=== PATIENT | male | born 1980 | race Caucasian/White ===

== ENCOUNTER 2020-06-20 10:48 | Emergency (ER) | payer OTHER ==
[~2020-06-20 10:48] MED LIST: CYCLOBENZAPRINE10 MG PO; IBUPROFEN800 MG PO
== END 2020-06-20 13:04 | disposition home or self-care (01) ==
LOC: ER1 10:48
DX: S80.811A Abrasion, right lower leg, initial encounter (principal); F17.210 Nicotine dependence, cigarettes, uncomplicated; Z91.018 Allergy to other foods; X58.XXXA Exposure to other specified factors, initial encounter; Y93.01 Activity, walking, marching and hiking; Y92.59 Other trade areas as the place of occurrence of the external cause
CPT/HCPCS: 99283